=== PATIENT | female | born 1970 | race Caucasian/White ===

== ENCOUNTER 2022-02-08 14:39 | Emergency (ER) | payer OTHER, BC ==
[2022-02-08 14:50] VITALS: BP 155/84; PULSE 126
== END 2022-02-08 15:22 | disposition home or self-care (01) ==
LOC: VM.ED 14:39
DX: S06.0X0A Concussion without loss of consciousness, initial encounter (principal); W22.8XXA Striking against or struck by other objects, initial encounter
CPT/HCPCS: 99283